=== PATIENT | female | born 1995 | race African-American/Black ===

== ENCOUNTER 2017-08-20 02:02 | Emergency (ER) | payer OTHER ==
[~2017-08-20] VITALS: Ht 160 cm; Wt 59.0 kg
[2017-08-20 02:26] VITALS: BP 114/71
== END 2017-08-20 05:00 | disposition left against medical advice (07) ==
LOC: ER 02:02
DX: Z11.3 Encounter for screening for infections with a predominantly sexual mode of transmission (principal); N89.8 Other specified noninflammatory disorders of vagina; Z53.21 Procedure and treatment not carried out due to patient leaving prior to being seen by health care provider
CPT/HCPCS: 81025